=== PATIENT | female | born 1975 | race American Indian/Alaskan Native ===

== ENCOUNTER 2017-10-17 12:21 | Emergency (ER) | payer OTHER ==
[2017-10-17] MEDS ORDERED: MOTRIN PO ONE (13:27)
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
[2017-10-17] MEDS ORDERED: MOTRIN ONE (13:36)
[2017-10-17] MEDS ORDERED: ZOFRAN ODT PO ONE (13:53)
[2017-10-17] MEDS ORDERED: ZOFRAN ONE (14:00)
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
[2017-10-17 16:29] VITALS: BP 118/63
== END 2017-10-17 16:28 | disposition home or self-care (01) ==
LOC: ED 12:21
DX: S16.1XXA Strain of muscle, fascia and tendon at neck level, initial encounter (principal); S00.83XA Contusion of other part of head, initial encounter; R07.89 Other chest pain; Z88.5 Allergy status to narcotic agent; V49.49XA Driver injured in collision with other motor vehicles in traffic accident, initial encounter; Y93.89 Activity, other specified; Y92.89 Other specified places as the place of occurrence of the external cause; Y99.8 Other external cause status
CPT/HCPCS: 70450; 70486; 71046; 72125; 99284; J2405; Q0162

== ENCOUNTER 2018-01-24 23:17 | Emergency (ER) | payer OTHER ==
[2018-01-24 23:49] VITALS: BP 123/80
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
== END 2018-01-25 06:55 | disposition home or self-care (01) ==
LOC: ED 23:17
DX: H10.31 Unspecified acute conjunctivitis, right eye (principal); E11.9 Type 2 diabetes mellitus without complications; Z88.1 Allergy status to other antibiotic agents; Z88.6 Allergy status to analgesic agent
CPT/HCPCS: 99282

== ENCOUNTER 2018-12-12 06:18 | Emergency (ER) | payer OTHER ==
[2018-12-12 06:30] VITALS: BP 125/82
[2018-12-12] MEDS ORDERED: IBUPROFEN PO ONE (07:49)
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
== END 2018-12-12 09:36 | disposition home or self-care (01) ==
LOC: ED 06:18
DX: S13.4XXA Sprain of ligaments of cervical spine, initial encounter (principal); S39.012A Strain of muscle, fascia and tendon of lower back, initial encounter; V49.49XA Driver injured in collision with other motor vehicles in traffic accident, initial encounter; Y93.89 Activity, other specified; Y92.488 Other paved roadways as the place of occurrence of the external cause; Y99.8 Other external cause status
CPT/HCPCS: 72040; 72100; 99283

== ENCOUNTER 2020-05-16 14:49 | Emergency (ER) | payer OTHER ==
[2020-05-16 15:03] VITALS: BP 131/78
--- NOTE | 2020-05-16 15:03 | Event Note ---
ED Screening Note Date of service: 05/16/20 Time: 15:02 ED Screening Note: Patient complains of right lower quadrant pain x3 days Denies urinary symptoms or vaginal discharge Denies history of abdominal surgeries This initial assessment/diagnostic orders/clinical plan/treatment(s) is/are subject to change based on patients health status, clinical progression and re- assessment by fellow clinical providers in the ED. Further treatment and workup at subsequent clinical providers discretion. Patient/guardian urged not to elope from the ED as their condition may be serious if not clinically assessed and managed. Initial orders include: Labs CT abdomen
[2020-05-16 15:18] LABS: Bilirubin,Urine NEG (Negative); Blood,Urine NEG (Negative); Color,Urine Yellow (Yellow); Mucus,Urine 2+ /HPF; Protein,Urine <15 mg/dL mg/dL (Negative); Urobilinogen,Urine < 2.0 mg/dL (<2.0)
[2020-05-16 16:04] LABS: Basophils % (Auto) 0.5 % (0.0-1.8); Eosinophils # (Auto) 0.1 K/mm3 (0.0-0.4); Eosinophils % (Auto) 1.4 % (0.0-4.3); Hematocrit 39.1 % (30.3-42.9); Lymphocytes # (Auto) 1.8 K/mm3 (1.2-5.4); Lymphocytes % (Auto) 31.5 % (13.4-35.0); Mean Corpuscular HGB Conc 33 % (30-34); Mean Corpuscular Volume 89 fl (79-97); Monocytes # (Auto) 0.4 K/mm3 (0.0-0.8); Monocytes % (Auto) 6.9 % (0.0-7.3); Platelet Count 356 K/mm3 (140-440); Red Cell Distribution Width 13.8 % (13.2-15.2)
[2020-05-16 16:23] LABS: Alanine Aminotransferase 19 units/L (7-56); Albumin 4.2 g/dL (3.9-5); Blood Urea Nitrogen 5 mg/dL (7-17); Calcium 9.3 mg/dL (8.4-10.2); Hemolysis Index 16
[2020-05-16 16:38] LABS: BUN/Creatinine Ratio 8
[2020-05-16] MEDS ORDERED: ONDANSETRON 4 MG/2 ML INJ ONE (17:31)
[2020-05-16] MEDS ORDERED: ONDANSETRON 4 MG/2 ML INJ IV ONE (17:31)
--- NOTE | 2020-05-16 18:24 | Cat Scan Report ---
CT OF THE ABDOMEN AND PELVIS WITH INTRAVENOUS CONTRAST INDICATION / CLINICAL INFORMATION: Acute right lower quadrant pain. TECHNIQUE: The patient received 100 cc Omnipaque [address] scans at this location are performed using CT dose reduction for ALARA by means of automated exposure control. COMPARISON: 06/26/2016. FINDINGS: ABDOMEN: There is mild generalized decreased density of the liver parenchyma compared to the spleen w ithout focal lesion. The gallbladder, bile ducts, pancreas, spleen, adrenal glands, kidneys and bowel demonstrate no significant abnormality. No adenopathy is seen. The lung bases are clear. PELVIS: There is a localized inflammatory process in the right lower quadrant along the anterolateral aspect of the ascending colon. There is a small ovoid fatty mass at this site with mild inflammation in the surrounding fat. There are multiple diverticula throughout the colon. I do not identify an in flamed diverticulum in this region. There is no evidence of bowel wall thickening or free air. A norm al appendix is present more inferiorly. The distal ureters and urinary bladder are normal. A normal appendix is present. There is a 1.4 cm fi broid in the anterior uterine body. I see no evidence of adnexal mass or free fluid. I do not identif y a hernia. No acute osseous abnormality is seen. IMPRESSION: 1. Acute epiploic appendagitis along the anterolateral margin of the ascending colon. No evidence of acute appendicitis. 2. Diverticulosis without CT evidence of acute diverticulitis. 3. Small uterine fibroid. 4. Mild diffuse fatty infiltration of the liver. Signer Name: Theron Bullock MD Signed: 05/16/2020 6:23 PM Workstation Name: [id number]
--- NOTE | 2020-05-16 19:00 | Emergency Department Report ---
HPI - General Chief Complaint: Abdominal Pain Time Seen by Provider: 05/16/20 15:02 - HPI HPI: This is a 44-year-old female presents to the emergency department with a complaint of a 3-day history of right middle to lower quadrant abdominal pain. She has had some mild nausea but she denies any vomiting. She denies any dysuria, vaginal bleeding or discharge, diarrhea, constipation. She took some Goody's powder for her symptoms with mild and/or transient relief. She has a past medical history of [id number] diabetes but the patient admits she is not compliant with any medication. She does not have a primary care physician for follow-up. No recent travel or sick contacts at home. ED Past Medical Hx - Past Medical History Previous Medical History?: Yes Hx Diabetes: Yes (type2) - Surgical History Past Surgical History?: No - Social History Smoking Status: Former Smoker Substance Use Type: None - Medications Home Medications: Home Medications Medication Instructions Recorded Confirmed Last Taken Type Omeprazole Magnesium [PriLOSEC] 10 mg PO QDAY #30 suspdr.pkt 06/26/16 Unknown Rx Ondansetron [Zofran Odt] 4 mg PO Q8HR #20 tab.rapdis 06/26/16 Unknown Rx Cyclobenzaprine [Flexeril] 10 mg PO TID PRN #15 tablet 10/17/17 Unknown Rx Naproxen [Naprosyn] 500 mg PO BID #20 tablet 10/17/17 Unknown Rx Ondansetron [Zofran ODT TAB] 4 mg PO Q8HR #12 tab.rapdis 10/17/17 Unknown Rx Cephalexin [Keflex] 500 mg PO BID #20 capsule 01/25/18 Unknown Rx Erythromycin [Erythromycin Ophth 1 applic OD QID #1 tube 01/25/18 Unknown Rx Oint] Ibuprofen [Motrin 600 MG tab] 600 mg PO Q8H PRN #30 tablet 01/25/18 Unknown Rx Ibuprofen [Motrin] 600 mg PO Q8H PRN #20 tablet 04/26/18 Unknown Rx Cyclobenzaprine [Flexeril] 10 mg PO QHS PRN #10 tablet 12/12/18 Unknown Rx Ibuprofen [Motrin] 600 mg PO Q8H PRN #20 tablet 12/12/18 Unknown Rx Ondansetron [Zofran Odt] 4 mg PO Q8HR PRN #15 tab.rapdis 05/16/20 Unknown Rx traMADoL [Ultram 50 MG tab] 50 mg PO Q6HR PRN #10 tablet 05/16/20 Unknown Rx ED Review of Systems ROS: Stated complaint: SIDE PAIN Other details as noted in HPI Comment: All other systems reviewed and negative Constitutional: denies: chills, fever Eyes: denies: eye pain, vision change ENT: denies: ear pain, throat pain Respiratory: denies: cough, shortness of breath Cardiovascular: denies: chest pain, palpitations Gastrointestinal: abdominal pain, nausea. denies: vomiting Genitourinary: denies: dysuria, discharge Musculoskeletal: denies: back pain, arthralgia Skin: denies: rash, lesions Neurological: denies: headache, weakness Physical Exam - Physical Exam Vital Signs: Vital Signs 05/16/20 15:00 Temperature 98.4 F Pulse Rate 91 H Respiratory 18 Rate Blood Pressure 131/78 [Right] O2 Sat by Pulse 100 Oximetry Physical Exam: GENERAL: The patient is well-developed well-nourished. HENT: Normocephalic. Atraumatic. Patient has moist mucous membranes. EYES: Extraocular motions are intact. NECK: Supple. Trachea is midline. CHEST/LUNGS: Clear to auscultation. There is no respiratory distress noted. HEART/CARDIOVASCULAR: Regular. There is no tachycardia. ABDOMEN: Abdomen is soft. Right lower quadrant abdominal tenderness to palpation. No guarding. No peritoneal signs with heel strike. Patient has normal bowel sounds. There is no abdominal distention. SKIN: Skin is warm and dry. NEURO: The patient is awake, alert, and oriented. The patient is cooperative. The patient has no focal neurologic deficits. Normal speech. MUSCULOSKELETAL: There is no tenderness or deformity. There is no limitation range of motion. ED Course Vital Signs 05/16/20 15:00 Temperature 98.4 F Pulse Rate 91 H Respiratory 18 Rate Blood Pressure 131/78 [Right] O2 Sat by Pulse 100 Oximetry - Reevaluation(s) Reevaluation #1: 05/16/20 19:40 Lab Results 05/16/20 05/16/20 05/16/20 Range/Units 15:34 15:34 15:34 WBC 5.9 (4.5-11.0) K/mm3 RBC 4.40 (3.65-5.03) M/mm3 Hgb 13.0 (10.1-14.3) gm/dl Hct 39.1 (30.3-42.9) % MCV 89 (79-97) fl MCH 30 (28-32) pg MCHC 33 (30-34) % RDW 13.8 (13.2-15.2) % Plt Count 356 (140-440) K/mm3 Lymph % (Auto) 31.5 (13.4-35.0) % Kings % (Auto) 6.9 (0.0-7.3) % Eos % (Auto) 1.4 (0.0-4.3) % Baso % (Auto) 0.5 (0.0-1.8) % Lymph # (Auto) 1.8 (1.2-5.4) K/mm3 Kings # (Auto) 0.4 (0.0-0.8) K/mm3 Eos # (Auto) 0.1 (0.0-0.4) K/mm3 Baso # (Auto) 0.0 (0.0-0.1) K/mm3 Seg Neutrophils % 59.7 (40.0-70.0) % Seg Neutrophils # 3.5 (1.8-7.7) K/mm3 Sodium 142 (137-145) mmol/L Potassium 4.1 (3.6-5.0) mmol/L Chloride 105.3 (98-107) mmol/L Carbon Dioxide 26 (22-30) mmol/L Anion Gap 15 mmol/L BUN 5 L (7-17) mg/dL Creatinine 0.6 (0.6-1.2) mg/dL Estimated GFR > 60 ml/min BUN/Creatinine Ratio 8 % Glucose 133 H (65-100) mg/dL Calcium 9.3 (8.4-10.2) mg/dL Total Bilirubin < 0.20 (0.1-1.2) mg/dL AST 19 (5-40) units/L ALT 19 (7-56) units/L Alkaline Phosphatase 93 (35-129) units/L Total Protein 7.2 (6.3-8.2) g/dL Albumin 4.2 (3.9-5) g/dL Albumin/Globulin Ratio 1.4 % Lipase 26 (13-60) units/L HCG, Qual Negative (Negative) Urine Color (Yellow) Urine Turbidity (Clear) Urine pH (5.0-7.0) Ur Specific Correll (1.003-1.030) Urine Protein (Negative) mg/dL Urine Glucose (UA) (Negative) mg/dL Urine Ketones (Negative) mg/dL Urine Blood (Negative) Urine Nitrite (Negative) Urine Bilirubin (Negative) Urine Urobilinogen (<2.0) mg/dL Ur Leukocyte Esterase (Negative) Urine WBC (Auto) (0.0-6.0) /HPF Urine RBC (Auto) (0.0-6.0) /HPF U Epithel Cells (Auto) (0-13.0) /HPF Urine Mucus /HPF 05/16/20 Range/Units Unknown WBC (4.5-11.0) K/mm3 RBC (3.65-5.03) M/mm3 Hgb (10.1-14.3) gm/dl Hct (30.3-42.9) % MCV (79-97) fl MCH (28-32) pg MCHC (30-34) % RDW (13.2-15.2) % Plt Count (140-440) K/mm3 Lymph % (Auto) (13.4-35.0) % Kings % (Auto) (0.0-7.3) % Eos % (Auto) (0.0-4.3) % Baso % (Auto) (0.0-1.8) % Lymph # (Auto) (1.2-5.4) K/mm3 Kings # (Auto) (0.0-0.8) K/mm3 Eos # (Auto) (0.0-0.4) K/mm3 Baso # (Auto) (0.0-0.1) K/mm3 Seg Neutrophils % (40.0-70.0) % Seg Neutrophils # (1.8-7.7) K/mm3 Sodium (137-145) mmol/L Potassium (3.6-5.0) mmol/L Chloride (98-107) mmol/L Carbon Dioxide (22-30) mmol/L Anion Gap mmol/L BUN (7-17) mg/dL Creatinine (0.6-1.2) mg/dL Estimated GFR ml/min BUN/Creatinine Ratio % Glucose (65-100) mg/dL Calcium (8.4-10.2) mg/dL Total Bilirubin (0.1-1.2) mg/dL AST (5-40) units/L ALT (7-56) units/L Alkaline Phosphatase (35-129) units/L Total Protein (6.3-8.2) g/dL Albumin (3.9-5) g/dL Albumin/Globulin Ratio % Lipase (13-60) units/L HCG, Qual (Negative) Urine Color Yellow (Yellow) Urine Turbidity Slightly-cloudy (Clear) Urine pH 6.0 (5.0-7.0) Ur Specific Correll 1.021 (1.003-1.030) Urine Protein <15 mg/dl (Negative) mg/dL Urine Glucose (UA) 50 (Negative) mg/dL Urine Ketones Neg (Negative) mg/dL Urine Blood Neg (Negative) Urine Nitrite Neg (Negative) Urine Bilirubin Neg (Negative) Urine Urobilinogen < 2.0 (<2.0) mg/dL Ur Leukocyte Esterase Tr (Negative) Urine WBC (Auto) 2.0 (0.0-6.0) /HPF Urine RBC (Auto) 1.0 (0.0-6.0) /HPF U Epithel Cells (Auto) 29.0 H (0-13.0) /HPF Urine Mucus 2+ /HPF - Consultations Consultation #1: 05/16/20 18:57 I spoke with the general surgeon on-call, Dr. Vaughn, who listened to the case presentation and CT results. There is no need for admission or surgical intervention for the epiploic appendagitis. He recommends pain control and reassurance. ED Medical Decision Making - Lab Data Result diagrams: 05/16/20 15:34 05/16/20 15:34 - Radiology Data Radiology results: report reviewed CT OF THE ABDOMEN AND PELVIS WITH INTRAVENOUS CONTRAST INDICATION / CLINICAL INFORMATION: Acute right lower quadrant pain. TECHNIQUE: The patient received 100 cc Omnipaque [address] scans at this location are performed using CT dose reduction for ALARA by means of automated exposure control. COMPARISON: 06/26/2016. FINDINGS: ABDOMEN: There is mild generalized decreased density of the liver parenchyma compared to the spleen without focal lesion. The gallbladder, bile ducts, pancreas, spleen, adrenal glands, kidneys and bowel demonstrate no significant abnormality. No adenopathy is seen. The lung bases are clear. PELVIS: There is a localized inflammatory process in the right lower quadrant along the anterolateral aspect of the ascending colon. There is a small ovoid fatty mass at this site with mild inflammation in the surrounding fat. There are multiple diverticula throughout the colon. I do not identify an inflamed diverticulum in this region. There is no evidence of bowel wall thickening or free air. A normal appendix is present more inferiorly. The distal ureters and urinary bladder are normal. A normal appendix is present. There is a 1.4 cm fibroid in the anterior uterine body. I see no evidence of adnexal mass or free fluid. I do not identify a hernia. No acute osseous abnormality is seen. IMPRESSION: 1. Acute epiploic appendagitis along the anterolateral margin of the ascending colon. No evidence of acute appendicitis. 2. Diverticulosis without CT evidence of acute diverticulitis. 3. Small uterine fibroid. 4. Mild diffuse fatty infiltration of the liver. - Medical Decision Making This patient presents with a 3-day history of right middle to lower abdominal pain. On examination she does have reproducible right lower quadrant abdominal pain but no guarding and no peritoneal signs. Patient's labs have been unremarkable including CBC, metabolic panel, urinalysis, and the patient is not . She had a CT scan of the abdomen and pelvis with IV contrast that did not show any signs of appendicitis, but did show epiploic appendagitis. There was also signs of diverticulosis without diverticulitis, a small uterine fibroid and mild diffuse fatty infiltration of the liver. I spoke to the general surgeon regarding the epiploic appendagitis and there is no surgical intervention or need for admission for this condition. Patient was given a dose of Toradol and Zofran. Vital signs have been reassuring throughout her ED course. She will be discharged home to follow-up with primary care and was given a prescription for pain medication. She will return to the emergency department with any worsening of her symptoms or with any acute distress. Critical Care Time: No Critical care attestation.: If time is entered above; I have spent that time in minutes in the direct care of this critically ill patient, excluding procedure time. ED Disposition Clinical Impression: Epiploic appendagitis Disposition: TO HOME OR SELFCARE Is pt being admited?: No Condition: Stable Instructions: Epiploic Appendagitis, Abdominal Pain (ED) Additional Instructions: Please follow-up with a primary care physician in the next few days. Return to the emergency department with any worsening of your symptoms or with any acute distress. You have been prescribed a medication that is sedating and therefore should not be taken prior to driving, working, and responsible for children and in no way should be mixed with alcohol of any quantity. Return to the emergency department with any worsening of your symptoms, new or concerning symptoms not addressed during this current emergency department visit, or with any acute distress. Prescriptions: traMADoL [Ultram 50 MG tab] 50 mg PO Q6HR PRN #10 tablet PRN Reason: Pain Ondansetron [Zofran Odt] 4 mg PO Q8HR PRN #15 tab.rapdis PRN Reason: Nausea Referrals: PRIMARY CAREMD [Primary Care Provider] - 3-5 Days MINISTERIO BAZAN MD [Staff Physician] - 3-5 Days SINTIA BROWN MD [Staff Physician] - 3-5 Days [facility] [Provider Group] - 3-5 Days Time of Disposition: 19:01
[2020-05-16] MEDS ORDERED: KETOROLAC 30 MG/1 ML INJ IM ONE (19:05)
[2020-05-16] MEDS ORDERED: ONDANSETRON 4 MG ODT TAB PO ONE (19:06)
== END 2020-05-16 19:25 | disposition home or self-care (01) ==
LOC: ED 14:49
DX: K63.89 Other specified diseases of intestine (principal); E11.9 Type 2 diabetes mellitus without complications; Z87.891 Personal history of nicotine dependence; Z79.899 Other long term (current) drug therapy; Z88.8 Allergy status to other drugs, medicaments and biological substances; Z88.6 Allergy status to analgesic agent
CPT/HCPCS: 36415; 74177; 80053; 81001; 83690; 84703; 85025; 96372; 96374; 99284; J1885; J2405; Q9967; Q0162

== ENCOUNTER 2020-10-17 11:48 | Emergency (ER) | payer OTHER ==
[2020-10-17 14:49] VITALS: BP 103/67
--- NOTE | 2020-10-17 15:01 | XRay Report ---
XR chest routine 2V INDICATION / CLINICAL INFORMATION: shortness of breath. COMPARISON: None available. FINDINGS: SUPPORT DEVICES: None. HEART /PULMONARY VASCULATURE: No significant abnormality. LUNGS / PLEURA: No significant pulmonary or pleural abnormality. No pneumothorax. ADDITIONAL FINDINGS: No significant additional findings. IMPRESSION: 1. No acute findings. Signer Name: Hema Merritt MD Signed: 10/17/2020 2:57 PM Workstation Name: [id number]
--- NOTE | 2020-10-17 15:14 | Emergency Department Report ---
ED General Adult HPI - General Chief complaint: Chest Pain Stated complaint: CHEST PAIN, ERICH, ELEVATED BLOOD GLUCOSE PUI?: No Time Seen by Provider: 10/17/20 14:01 Source: patient Mode of arrival: Ambulatory Limitations: No Limitations - History of Present Illness Initial comments: Chief complaint: "I want make sure I do not have pneumonia. My blood sugars making my chest hurt." HPI: This is a 45-year-old female with history of type 2 diabetes with who presents with shortness of breath since April. She was diagnosed with COVID- 19 at that time. She has had persistent shortness of breath which is slowly improved. Yesterday she was evaluated at urgent care clinic for shortness of breath. Repeat COVID-19 test was negative. She also saw a new PCP. 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 2 years ago she stopped taking insulin. Her blood sugar was controlled with diet and lifestyle modifications. New PCP restarted insulin therapy on yesterday. Her hemoglobin A1c was 8.3. Since yesterday she has sharp pain in her left trapezius. Pain is constant. Worse with movement. No travel. No use of oral contraceptive therapy. She denies leg pain.. -: Gradual, month(s) (Several months of shortness of breath, 1 day of chest pain) Location: chest Severity scale (0 -10): 6 Quality: sharp Consistency: constant Improves with: none Worsens with: none Associated Symptoms: other (Shortness of breath chest pain) - Related Data Previous Rx's Medication Instructions Recorded Last Taken Type Omeprazole Magnesium [PriLOSEC] 10 mg PO QDAY #30 suspdr.pkt 06/26/16 Unknown Rx Ondansetron [Zofran Odt] 4 mg PO Q8HR #20 tab.rapdis 06/26/16 Unknown Rx Cyclobenzaprine [Flexeril] 10 mg PO TID PRN #15 tablet 10/17/17 Unknown Rx Naproxen [Naprosyn] 500 mg PO BID #20 tablet 10/17/17 Unknown Rx Ondansetron [Zofran ODT TAB] 4 mg PO Q8HR #12 tab.rapdis 10/17/17 Unknown Rx Erythromycin [Erythromycin Ophth 1 applic OD QID #1 tube 01/25/18 Unknown Rx Oint] Ibuprofen [Motrin 600 MG tab] 600 mg PO Q8H PRN #30 tablet 01/25/18 Unknown Rx cephALEXin [Keflex] 500 mg PO BID #20 capsule 01/25/18 Unknown Rx Ibuprofen [Motrin] 600 mg PO Q8H PRN #20 tablet 04/26/18 Unknown Rx Cyclobenzaprine [Flexeril] 10 mg PO QHS PRN #10 tablet 12/12/18 Unknown Rx Ibuprofen [Motrin] 600 mg PO Q8H PRN #20 tablet 12/12/18 Unknown Rx Ondansetron [Zofran Odt] 4 mg PO Q8HR PRN #15 tab.rapdis 05/16/20 Unknown Rx traMADoL [Ultram 50 MG tab] 50 mg PO Q6HR PRN #10 tablet 05/16/20 Unknown Rx Allergies Allergy/AdvReac Type Severity Reaction Status Date / Time ciprofloxacin [From Cipro] Allergy Itching Verified 10/17/20 12:36 morphine Allergy Hives Verified 10/17/20 12:36 ED Review of Systems ROS: Stated complaint: CHEST PAIN, ERICH, ELEVATED BLOOD GLUCOSE Other details as noted in HPI Comment: All other systems reviewed and negative Constitutional: denies: fever, malaise Respiratory: shortness of breath. denies: cough Cardiovascular: chest pain Gastrointestinal: denies: abdominal pain, nausea, vomiting ED Past Medical Hx - Past Medical History Previous Medical History?: Yes Hx Diabetes: Yes (type2) - Social History Smoking Status: Never Smoker Substance Use Type: None - Medications Home Medications: Home Medications Medication Instructions Recorded Confirmed Last Taken Type Omeprazole Magnesium [PriLOSEC] 10 mg PO QDAY #30 suspdr.pkt 06/26/16 Unknown Rx Ondansetron [Zofran Odt] 4 mg PO Q8HR #20 tab.rapdis 06/26/16 Unknown Rx Cyclobenzaprine [Flexeril] 10 mg PO TID PRN #15 tablet 10/17/17 Unknown Rx Naproxen [Naprosyn] 500 mg PO BID #20 tablet 10/17/17 Unknown Rx Ondansetron [Zofran ODT TAB] 4 mg PO Q8HR #12 tab.rapdis 10/17/17 Unknown Rx Erythromycin [Erythromycin Ophth 1 applic OD QID #1 tube 01/25/18 Unknown Rx Oint] Ibuprofen [Motrin 600 MG tab] 600 mg PO Q8H PRN #30 tablet 01/25/18 Unknown Rx cephALEXin [Keflex] 500 mg PO BID #20 capsule 01/25/18 Unknown Rx Ibuprofen [Motrin] 600 mg PO Q8H PRN #20 tablet 04/26/18 Unknown Rx Cyclobenzaprine [Flexeril] 10 mg PO QHS PRN #10 tablet 12/12/18 Unknown Rx Ibuprofen [Motrin] 600 mg PO Q8H PRN #20 tablet 12/12/18 Unknown Rx Ondansetron [Zofran Odt] 4 mg PO Q8HR PRN #15 tab.rapdis 05/16/20 Unknown Rx traMADoL [Ultram 50 MG tab] 50 mg PO Q6HR PRN #10 tablet 05/16/20 Unknown Rx ED Physical Exam - General Limitations: No Limitations General appearance: alert, in no apparent distress, other (Pleasant smiling appears comfortable) - Head Head exam: Present: atraumatic, normocephalic - Eye Eye exam: Present: normal appearance - ENT ENT exam: Present: mucous membranes moist - Neck Neck exam: Present: normal inspection, full ROM - Respiratory Respiratory exam: Present: normal lung sounds bilaterally. Absent: respiratory distress, wheezes, rales, rhonchi - Cardiovascular Cardiovascular Exam: Present: regular rate, normal rhythm, normal heart sounds. Absent: systolic murmur, diastolic murmur, rubs, gallop - GI/Abdominal GI/Abdominal exam: Present: soft, normal bowel sounds. Absent: distended, tenderness, guarding, rebound - Extremities Exam Extremities exam: Present: normal inspection - Neurological Exam Neurological exam: Present: alert, oriented X3 - Psychiatric Psychiatric exam: Present: normal affect, normal mood - Skin Skin exam: Present: warm, dry, intact, normal color. Absent: rash ED Course Vital Signs 10/17/20 10/17/20 14:47 14:50 Temperature 98.7 F Pulse Rate 92 H Respiratory 16 16 Rate Blood Pressure 103/67 [Right] O2 Sat by Pulse 96 Oximetry ED Medical Decision Making - EKG Data -: EKG Interpreted by Me EKG shows normal: sinus rhythm, axis, intervals, QRS complexes, ST-T waves Rate: normal - EKG Data 10/17/20 15:13 EKG obtained 1238 EKG interpreted by me rate 85 bpm Normal sinus rhythm normal rate normal axis normal intervals no ST elevation no ST-T signs of ischemia normal EKG - Radiology Data Radiology results: report reviewed Chest 2 view: No acute findings according to radiology impression - Medical Decision Making 1. Shortness of breath since Covid 19 diagnosis in April: Suspect long haul symptoms. No indication of pulmonary embolism pneumonia pneumothorax. PERC negative for PE 2. Chest pain: Atypical for ACS. PERC negative for PE. No indication of pneumonia or pneumothorax. Suspect musculoskeletal pain. 3. Type 2 diabetes: New medication insulin regimen. Diet diet modification encouraged. Critical care attestation.: If time is entered above; I have spent that time in minutes in the direct care of this critically ill patient, excluding procedure time. ED Disposition Clinical Impression: History of COVID-19, Pleurisy, Chest wall pain, Type 2 diabetes mellitus Disposition: - TO HOME OR SELFCARE Is pt being admited?: No Does the pt Need Aspirin: No Condition: Stable Instructions: Diabetes Mellitus Type 2 in Adults (ED), Chest Wall Pain, [id number]
--- NOTE | 2020-10-18 09:37 | Electrocardiograph Report ---
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
== END 2020-10-17 15:38 | disposition home or self-care (01) ==
LOC: ED 11:48
DX: E11.65 Type 2 diabetes mellitus with hyperglycemia (principal); R07.89 Other chest pain; R09.1 Pleurisy; Z79.899 Other long term (current) drug therapy; Z88.8 Allergy status to other drugs, medicaments and biological substances; Z88.6 Allergy status to analgesic agent; Z86.16 Personal history of COVID-19
CPT/HCPCS: 71046; 93005; 99283